=== PATIENT | female | born 1950 | race Caucasian/White ===

== ENCOUNTER → 2017-01-04 | Outpatient (CLI) | payer BC ==
--- NOTE | 2017-01-04 12:15 | MM ---
Reason for exam: screening (asymptomatic). Last mammogram was performed 1 year ago. History: Patient is postmenopausal and is nulliparous. Benign US biopsy breast VAD RT of the right breast, September 04, 2014. Taking estrogen for 5 years 7 months. Took progesterone for 4 months. Physical Findings: A clinical breast exam by your physician is recommended on an annual basis and results should be correlated with mammographic findings. MG Screening Mammo w CAD Bilateral CC and MLO view(s) were taken. Prior study comparison: January 01, 2016, bilateral MG 3d diag mammo w/cad WILLIE. September 04, 2014, right breast MG diagnostic mammo RT wo CAD. August 19, 2014, bilateral MG diagnostic mammo w CAD WILLIE. There are scattered fibroglandular densities. Previous mammotome biopsy in the right breast. There is chronic nodularity in the right breast. Asymmetric breast tissue in the left breast is stable. There is no discrete abnormality. ASSESSMENT: Benign, BI-RAD 2 RECOMMENDATION: Routine screening mammogram of both breasts in 1 year.
== END | disposition home or self-care (01) ==
LOC: RADMAMWWP 08:38
PROVIDERS: ATTEND Family Medicine
DX: Z12.31 Encounter for screening mammogram for malignant neoplasm of breast (principal)

== ENCOUNTER → 2018-02-28 | Outpatient (CLI) | payer MEDICARE ==
--- NOTE | 2018-02-28 17:50 | BD ---
EXAMINATION TYPE: MG DEXA axial skeleton. DATE OF EXAM: 02/28/2018 COMPARISON: 08/20/2002 CLINICAL HISTORY: Height: 64 IN Weight: 225 LBS FRAX RISK QUESTIONS: Alcohol (3 or more units per day): NO Family History (Parent hip fracture): NO Glucocorticoids (More than 3mos): NO (Ex: prednisone, prednisolone, methylprednisolone, dexamethasone, and hydrocortisone). History of Fracture in Adulthood: NO Secondary Osteoporosis: 1. Type 1 Diabetes: NO 2. Hyperthyroidism: NO 3. Menopause before 45: YES AGE 42 COMPLETE HYSTERECTOMY 4. Malnutrition: NO 5. Chronic liver disease: NO Rheumatoid Arthritis: NO Current Tobacco Use: NO RISK FACTORS HISTORY OF: Family History of Osteoporosis: YES MOTHER Active: YES Diet low in dairy products/other sources of calcium: YES Postmenopausal woman: AGE 42 Take estrogen and/or progesterone medications: YES PREMARIN CREAM FOR 10 YEARS How long: TOOK ESTROGEN FOR 5 YEARS MEDICATIONS: Additional Medications: VIT D, PREMARIN CREAM, HIGH BLOOD PRESSURE MED, HIGH CHOLESTEROL MEDS, EXAM MEASUREMENTS: Bone mineral densitometry was performed using the [employer] System. Bone mineral density as measured about the Lumbar spine is: ----- L1-L4(G/cm2): 1.161 T Score Values are as follows: ----- L2: -0.6 ----- L3: -1.0 ----- L4: 2.0 ----- L1-L4: -0.2 Bone mineral density has: Increased 5.4% since study of: 08/20/2002 Bone mineral density about the R hip (g/cm2): 0.870 Bone mineral density about the L hip (g/cm2): 0.815 T Score values are as follows: -----R Neck: -1.2 -----L Neck: -1.6 -----R Total: -0.6 -----L Total: -1.1 Bone mineral density has: Decreased -18.6% since study of: 08/20/2002 IMPRESSION: Normal (Values between +1 and -1 indicate normal bone mass). Consider repeating this study in 5 year s or sooner if there is some new clinical indication. NOTE: T-SCORE=SD OF THE YOUNG ADULT MEAN.
--- NOTE | 2018-03-01 14:25 | MM ---
Reason for exam: screening (asymptomatic). Last mammogram was performed 1 year and 2 months ago. History: Patient is postmenopausal and is nulliparous. Benign US biopsy breast VAD RT of the right breast, September 04, 2014. Taking estrogen for 5 years 7 months. Took progesterone for 4 months. Physical Findings: A clinical breast exam by your physician is recommended on an annual basis and results should be correlated with mammographic findings. MG 3D Screening Mammo W/Cad Bilateral CC and MLO view(s) were taken. Prior study comparison: January 04, 2017, bilateral MG screening mammo w CAD. January 01, 2016, bilateral MG 3d diag mammo w/cad WILLIE. The breast tissue is almost entirely fat. Previous mammotome biopsy in the right breast. No significant changes when compared with prior studies. ASSESSMENT: Benign, BI-RAD 2 RECOMMENDATION: Routine screening mammogram of both breasts in 1 year.
== END | disposition home or self-care (01) ==
LOC: RADMAMWWP 08:19
PROVIDERS: ATTEND Family Medicine
DX: Z12.31 Encounter for screening mammogram for malignant neoplasm of breast (principal); M85.80 Other specified disorders of bone density and structure, unspecified site
CPT/HCPCS: 77063; 77067; 77080

== ENCOUNTER → 2019-05-28 | Outpatient (CLI) | payer MEDICARE ==
--- NOTE | 2019-05-29 11:02 | MM ---
Reason for exam: screening (asymptomatic). Last mammogram was performed 1 year and 3 months ago. History: Patient is postmenopausal and is nulliparous. Benign US biopsy breast VAD RT of the right breast, September 04, 2014. Taking estrogen for 5 years 7 months. Took progesterone for 4 months. Physical Findings: A clinical breast exam by your physician is recommended on an annual basis and results should be correlated with mammographic findings. MG 3D Screening Mammo W/Cad Bilateral CC and MLO view(s) were taken. Prior study comparison: February 28, 2018, bilateral MG 3d screening mammo w/cad. January 04, 2017, bilateral MG screening mammo w CAD. There are scattered fibroglandular densities. Stable benign calcifications. There is no discrete abnormality. No significant changes when compared with prior studies. ASSESSMENT: Benign, BI-RAD 2 RECOMMENDATION: Routine screening mammogram of both breasts in 1 year.
== END | disposition home or self-care (01) ==
LOC: RADMAMWWP 09:12
PROVIDERS: ATTEND Family Medicine
DX: Z12.31 Encounter for screening mammogram for malignant neoplasm of breast (principal); E55.9 Vitamin D deficiency, unspecified
CPT/HCPCS: 77063; 77067

== ENCOUNTER → 2021-10-11 | Outpatient (CLI) | payer MEDICARE ==
--- NOTE | 2021-10-14 11:30 | MM ---
Reason for exam: screening (asymptomatic). Last mammogram was performed 2 years and 4 months ago. History: Patient is postmenopausal and is nulliparous. Benign US biopsy breast VAD RT of the right breast, September 04, 2014. Took hormonal contraceptives for 25 years. Taking estrogen for 5 years 7 months. Took progesterone for 4 months. Physical Findings: A clinical breast exam by your physician is recommended on an annual basis and results should be correlated with mammographic findings. MG 3D Screening Mammo W/Cad Bilateral CC and MLO view(s) were taken. Prior study comparison: May 28, 2019, bilateral MG 3d screening mammo w/cad. February 28, 2018, bilateral MG 3d screening mammo w/cad. There are scattered fibroglandular densities. Previous mammotome biopsy in the right breast. Focal asymmetry outer left CC view. No significant changes when compared with prior studies. ASSESSMENT: Benign, BI-RAD 2 RECOMMENDATION: Routine screening mammogram of both breasts in 1 year.
== END | disposition home or self-care (01) ==
LOC: RADMAMWWP 11:32
PROVIDERS: ATTEND Family Medicine
DX: Z12.31 Encounter for screening mammogram for malignant neoplasm of breast (principal); Z78.0 Asymptomatic menopausal state
CPT/HCPCS: 77063; 77067

== ENCOUNTER → 2022-04-28 | Outpatient (CLI) | payer MEDICARE ==
--- NOTE | 2022-04-29 10:58 | USB ---
Reason for Exam: Clinical finding. Patient History: Menarche at age 14. Patient has no children. Left ovary removed at age 42. Right ovary removed at age 42. Hysterectomy at age 42. Postmenopausal. Currently using Estrogen, for 5 years, 7 months. Progesterone for 4 months. Patient used Hormonal Contraceptives for 25 years. 09/04/2014, Benign Core Biopsy on the right side. Risk Values: Michelle 5 year model risk: 2.3%. NCI Lifetime model risk: 6.9%. Prior Study Comparison: 02/28/2018 Bilateral Screening Mammogram, [facility]. 05/28/2019 Bilateral Screening Mammogram, [facility]. 10/11/2021 Bilateral Screening Mammogram, [facility]. Findings: Finding 1: Mass. Laterality: Right. Size 29 x 16 x 27 mm. 10 O'clock Region: Axillary Tail. 20 cm cm from nipple. Shape: Oval. Targeted scanning of the patient's palpable site 10:00 zone B/C within the right breast. Additional scanning of the subareolar region and axilla. We note that patient had previous biopsy at the same site back in 2013. Correlating with the patient's 10/11/2021 mammogram, an oval fatty area appears to be gradually enlarging. At the palpable site, 10:00 position right breast, there is an oval, circumscribed echogenic mass measuring 2.9 x 2.7 x 1.6 cm. In 2013, this measured 2.5 x 1.8 x 1.1 cm. Overall Assessment: Probably benign, BI-RAD 3 Management: Diagnostic Mammogram of both breasts in 5 months. Surgical Consultation of the right breast. 1. Surgical consultation for further clinical assessment of the patient's 10:00 right breast palpable site. This was previously biopsied in 2013 revealing adipose tissue with fibrosis. This shows slight gradual enlargement from that time. If symptomatic, consider surgical excision. 2. Bilateral diagnostic mammograms in 5 months at the time of the patient's annual exam. Findings and impression were discussed with the patient. Electronically signed and approved by: Chantal Marquez M.D. Radiologist
== END | disposition home or self-care (01) ==
LOC: RADUSWWP 09:29
PROVIDERS: ATTEND Family Medicine
DX: R92.8 Other abnormal and inconclusive findings on diagnostic imaging of breast (principal); Z78.0 Asymptomatic menopausal state

== ENCOUNTER → 2022-06-03 | Outpatient (CLI) | payer MEDICARE ==
[2022-06-03 14:54] VITALS: BP 119/76; PULSE 51; RESP 17; TEMP 98.4
--- NOTE | 2022-06-03 15:16 | P.GSHP ---
History of Present Illness H&P Date: 06/03/22 Chief Complaint: mass right breast Kala is a 71 year old white female seen in consultation for Dr. Betancur regarding a mass in her right breast. She had a biopsy (core biopsy) of this area in 2013 and by report this was fatty tissue with fibrosis. She had a bilateral mammogram on 10-11-22 which was BIRAD 2. She had an ultrasound of the right breast on 04-28-22 which showed a 2.9 by 2.7 cm echogenic mass at the 10:00 position. The patient about two months ago started to feel some fullness at this site. It has not changed since she started to feel it. Is not painful. She has not had any trauma or infection in the breast. She does not complain of any skin changes or nipple discharge. She has not had other surgery in the breast other than the core biopsy of the lesion on the right side. 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 Social History: nicotine: Negative Alcohol: Occasional Drugs: Negative - Constitutional Constitutional: Denies chills, Denies fever - EENT Eyes: denies blurred vision, denies pain Ears: deny: decreased hearing, tinnitus Ears, nose, mouth and throat: Denies headache, Denies sore throat - Breasts Breasts: bilateral: as per HPI - Cardiovascular Cardiovascular: Reports as per HPI - Respiratory Respiratory: Denies cough, Denies 7 - Gastrointestinal Gastrointestinal: Denies abdominal pain, Denies diarrhea, Denies nausea, Denies vomiting - Genitourinary (Female) Genitourinary: Denies dysuria, Denies hematuria - Menstruation Menstruation: Reports post hysterectomy - Musculoskeletal Musculoskeletal: Denies myalgias - Integumentary Integumentary: Denies pruritus, Denies rash - Neurological Neurological: Denies numbness, Denies weakness - Psychiatric Psychiatric: Denies anxiety, Denies depression - Endocrine Endocrine: Denies fatigue, Denies weight change - Hematologic/Lymphatic Comment: baby aspirin - Allergic/Immunologic Allergic/Immunologic: Reports seasonal allergies Past Medical History Past Medical History: Hyperlipidemia, Hypertension, Osteoarthritis (OA), Skin Disorder Additional Past Medical History / Comment(s): thin skin to fingers and mult paper cuts, steroids w/in last 3 mos History of Any Multi-Drug Resistant Organisms: None Reported Past Surgical History: Hysterectomy, Orthopedic Surgery Additional Past Surgical History / Comment(s): LEFT KNEE AND LEFT SHOULDER SURGERY, LEFT FOOT FUSION 2016 Past Anesthesia/Blood Transfusion Reactions: No Reported Reaction Past Psychological History: Anxiety Smoking Status: Never smoker Past Alcohol Use History: Occasional Past Drug Use History: None Reported - Past Family History Mother Additional Family Medical History / Comment(s): Rheumatic fever, Rheumatic heart disease, heart valve replacement x2 Father Additional Family Medical History / Comment(s): dementia Medications and Allergies Home Medications Medication Instructions Recorded Confirmed Type Aspirin 81 mg PO DAILY 11/21/14 06/03/22 History Docusate Sodium [Dulcolax Stool 100 mg PO BID 11/21/14 06/03/22 History Softener] Naproxen Sodium [Aleve] 220 mg PO HS 11/21/14 06/03/22 History Simvastatin [Zocor] 40 mg PO HS 11/21/14 06/03/22 History Montelukast Sodium [Singulair] 10 mg PO DAILY 06/03/22 06/03/22 History Turmeric Root Extract [Turmeric] 500 mg PO DAILY 06/03/22 06/03/22 History Allergies Allergy/AdvReac Type Severity Reaction Status Date / Time niacin Allergy Severe FLUSHING Verified 06/03/22 14:47 prednisone Allergy racing Verified 06/03/22 14:47 heart rate,confusion,restlessness Surgical - Exam Vital Signs Temp Pulse Resp BP Pulse Ox 98.4 F 51 L 17 119/76 99 06/03/22 14:51 06/03/22 14:51 06/03/22 14:51 06/03/22 14:51 06/03/22 14:51 BMI: 38.1 - General no distress - Eyes normal ocular movement - ENT no hearing loss - Neck trachea midline - Respiratory normal respiratory effort - Cardiovascular Rhythm: regular Heart Sounds: normal: S1, S2 - Abdomen Abdomen: soft - Integumentary normal turgor - Neurologic no disoriented, no combative - Musculoskeletal normal gait - Psychiatric oriented to time, oriented to person, oriented to place, speech is normal, memory intact Breast examination: BRA: 44DDD inspection: Bilateral grade 3 ptosis Palpation: Right breast: Multi-positional exam fibrocystic changes, approximately 2.5 centimeter circumscribed nodule in the upper outer quadrant region the spine was seen on ultrasound Right axilla: No adenopathy of concern Left breast: Positional exam no dominant masses or nodules of concern Left axilla: No adenopathy of concern Results Mammogram and ultrasound reviewed Assessment and Plan Assessment: Impression: mass right breast; this has changed it has become palpable for the patient she cannot feel the one that was biopsied in 2013 and is tender to palpation abnormal right breast ultrasound Plan: Ultrasound-guided core biopsy to confirm that the area now palpable which has changed is still consistent with a lipomatous like lesion Probable resection in the operating room after confirmation that this is a lipoma Risks and benefits of procedure discussed with the patient and her friend. They understand and wish to proceed. CC: Dr. Betancur
== END ==
LOC: WWCWWP 13:53
PROVIDERS: ATTEND Surgery
DX: N63.12 Unspecified lump in the right breast, upper inner quadrant (principal); E78.5 Hyperlipidemia, unspecified; I10 Essential (primary) hypertension; M19.90 Unspecified osteoarthritis, unspecified site; F41.9 Anxiety disorder, unspecified; Z88.8 Allergy status to other drugs, medicaments and biological substances

== ENCOUNTER → 2022-06-15 | Day surgery (SDC) | payer MEDICARE ==
--- NOTE | 2022-06-21 11:46 | MM ---
Risk Values: Michelle 5 year model risk: 2.3%. NCI Lifetime model risk: 6.9%. Pathology Description: Location: 10 o'clock. Marker Left Behind. Needle Type: Mammotome Cores: 6 Gauge: 13 The procedure of ultrasound guided core biopsy was explained to the patient. Benefits, alternatives, and risks were discussed. An informed consent was then obtained. The patient was placed in supine positioning for imaging and for the procedure. The overlying skin was prepped and draped in usual sterile fashion. Lidocaine was used as anesthetic into the skin and subcutaneous tissue up to area of concern in the 10:00 peripheral right breast.. Under ultrasound guidance, a 13-gauge vacuum-assisted mammotome Elite biopsy gun was used to obtain 6 core samples. Following this, a Hydromark coil clip was left in lesion. The patient tolerated the procedure well without any immediate complication. The patient was kept in the radiology department for short stay after the procedure and then discharged home in stable condition. Postprocedure mammogram: Shows 2 clips located within the oval fat density lesion posterior upper outer quadrant. The patient was transferred to mammography for physician ordered post procedure mammogram for clip placement verification. Impression: Successful, uncomplicated ultrasound guided core biopsy of suspected posterior upper outer quadrant lipoma right breast which has been gradually enlarging. Full pathology results to follow. Pathology Results: Result: Benign, Fibroadenolipoma. RIGHT BREAST, TEN O'CLOCK, ULTRASOUND GUIDED NEEDLE CORE BIOPSY: Features consistent with fibrolipoma. Tissue Density: Right: There are scattered fibroglandular densities. Findings: The procedure of ultrasound guided core biopsy was explained to the patient. Benefits, alternatives, and risks were discussed. An informed consent was then obtained. The patient was placed in supine positioning for imaging and for the procedure. The overlying skin was prepped and draped in usual sterile fashion. Lidocaine was used as anesthetic into the skin and subcutaneous tissue up to area of concern in the 10:00 peripheral right breast.. Under ultrasound guidance, a 13-gauge vacuum-assisted mammotome Elite biopsy gun was used to obtain 6 core samples. Following this, a Hydromark coil clip was left in lesion. The patient tolerated the procedure well without any immediate complication. The patient was kept in the radiology department for short stay after the procedure and then discharged home in stable condition. Postprocedure mammogram: Shows 2 clips located within the oval fat density lesion posterior upper outer quadrant. The patient was transferred to mammography for physician ordered post procedure mammogram for clip placement verification. Impression: Successful, uncomplicated ultrasound guided core biopsy of suspected posterior upper outer quadrant lipoma right breast which has been gradually enlarging. Full pathology results to follow. Overall Assessment: Benign Assessment: MG diagnostic mammo RT wo CAD - Right: Benign, BI-RAD 2. Management: Screening Mammogram of both breasts in 3 months. Back on schedule. Electronically signed and approved by: Chantal Marquez M.D. Radiologist
== END ==
LOC: RADUSWWP 07:41
PROVIDERS: ATTEND Surgery
DX: R92.8 Other abnormal and inconclusive findings on diagnostic imaging of breast (principal); Z88.8 Allergy status to other drugs, medicaments and biological substances; Z79.82 Long term (current) use of aspirin; Z79.899 Other long term (current) drug therapy; Z79.1 Long term (current) use of non-steroidal anti-inflammatories (NSAID)
CPT/HCPCS: 88305; 77065; 19083; A4648

== ENCOUNTER → 2022-09-23 | Outpatient (CLI) | payer MEDICARE ==
[2022-09-23 15:11] LABS: African American GFR (CKD) 69.5 (60.0-200.0); Anion Gap 11.7 mmol/L (10.00-18.00); BUN/Creat Ratio 20.42 Ratio (12.00-20.00); Blood Urea Nitrogen 19.6 mg/dL (9.0-27.0); Calcium 9.4 mg/dL (8.7-10.3); Carbon Dioxide 25.9 mmol/L (20.0-27.5); Non-African American GFR(CKD) 59.9 (60.0-200.0); Potassium 4.4 mmol/L (3.5-5.5)
== END | disposition home or self-care (01) ==
LOC: LABWHC1 08:26
PROVIDERS: ATTEND Internal Medicine Interventional Cardiology
DX: I10 Essential (primary) hypertension (principal)
CPT/HCPCS: 36415; 80048; 83735

== ENCOUNTER → 2022-09-28 | Outpatient (CLI) | payer MEDICARE ==
--- NOTE | 2022-09-28 13:40 | MM ---
Reason for Exam: Follow-up at short interval from prior study. Last screening mammogram was performed 12 month(s) ago. Patient History: Menarche at age 14. Patient has no children. Left ovary removed at age 42. Right ovary removed at age 42. Hysterectomy at age 42. Postmenopausal. Currently using Estrogen, for 5 years, 7 months. Progesterone for 4 months. Patient used Hormonal Contraceptives for 25 years. 06/15/2022, Benign US biopsy breast VAD RT on the right side. 09/04/2014, Benign Core Biopsy on the right side. Risk Values: Michelle 5 year model risk: 2.9%. NCI Lifetime model risk: 8.3%. Tissue Density: There are scattered fibroglandular densities. Findings: Analyzed By CAD. Right breast biopsy clip located around a fat-containing lesion consistent with prior biopsy pathology. No suspicious masses calcifications or distortions within either breast. Overall Assessment: Benign, BI-RAD 2 Management: Screening Mammogram of both breasts in 1 year. A clinical breast exam by your physician is recommended on an annual basis and results should be correlated with mammographic findings. This exam should not preclude additional follow-up of suspicious palpable abnormalities. Results were given to the patient verbally at the time of exam. Electronically signed and approved by: Christiano Poe DO
== END | disposition home or self-care (01) ==
LOC: RADMAMWWP 12:55
PROVIDERS: ATTEND Family Medicine
DX: R92.8 Other abnormal and inconclusive findings on diagnostic imaging of breast (principal); Z78.0 Asymptomatic menopausal state; Z90.721 Acquired absence of ovaries, unilateral
CPT/HCPCS: 77066; G0279; 77062

== ENCOUNTER → 2022-10-13 | Outpatient (CLI) | payer MEDICARE ==
[2022-10-13 08:38] VITALS: BP 133/80; PULSE 71; RESP 17; TEMP 97.8
--- NOTE | 2022-10-13 09:34 | P.PN ---
Subjective Progress Note Date: 10/13/22 Principal diagnosis: Fibrolipoma right breast/fibrocystic breast changes Kala is a 72 year old white female seen in consultation for Dr. Betancur regarding a mass in her right breast. She had a core biopsy which was a fibrolipoma on 06-15-22. She had a biopsy (core biopsy) of this area in 2013 and by report this was fatty tissue with fibrosis. She had a bilateral mammogram on 10-11-21 which was BIRAD 2. She had an ultrasound of the right breast on 04-28-22 which showed a 2.9 by 2.7 cm echogenic mass at the 10:00 position. The patient about two months ago started to feel some fullness at this site. It had not changed since she started to feel it. Is was not painful. She had not had any trauma or infection in the breast. She did not complain of any skin changes or nipple discharge. She had not had other surgery in the breast other than the core biopsy of the lesion on the right side. She most recently had a bilateral mammogram on [id number] which was benign BIRADS 2. She is not complaining of any new lumps masses or nodules in either breast. The patient states that the area which was biopsied is still palpable but has not changed at all in size and it is not tender. 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 HTN Social History: nicotine: Negative Alcohol: Occasional Drugs: Negative - Constitutional Constitutional: Denies chills, Denies fever - EENT Eyes: denies blurred vision, denies pain Ears: deny: decreased hearing, tinnitus Ears, nose, mouth and throat: Denies headache, Denies sore throat - Breasts Breasts: bilateral: as per HPI - Cardiovascular Cardiovascular: Reports as per HPI - Respiratory Respiratory: Denies cough - Gastrointestinal Gastrointestinal: Denies abdominal pain, Denies diarrhea, Denies nausea, Denies vomiting - Genitourinary (Female) Genitourinary: Denies dysuria, Denies hematuria - Menstruation Menstruation: Reports post hysterectomy - Musculoskeletal Musculoskeletal: Denies myalgias - Integumentary Integumentary: Denies pruritus, Denies rash - Neurological Neurological: Denies numbness, Denies weakness - Psychiatric Psychiatric: Denies anxiety, Denies depression - Endocrine Endocrine: Denies fatigue, Denies weight change - Hematologic/Lymphatic Comment: baby aspirin - Allergic/Immunologic Allergic/Immunologic: Reports seasonal allergies Past Medical History Past Medical History: Hyperlipidemia, Hypertension, Osteoarthritis (OA), Skin Disorder Additional Past Medical History / Comment(s): thin skin to fingers and mult paper cuts, steroids w/in last 3 mos History of Any Multi-Drug Resistant Organisms: None Reported Past Surgical History: Hysterectomy, Orthopedic Surgery Additional Past Surgical History / Comment(s): LEFT KNEE AND LEFT SHOULDER BELTRAN RGERY, LEFT FOOT FUSION 2016 Past Anesthesia/Blood Transfusion Reactions: No Reported Reaction Past Psychological History: Anxiety Smoking Status: Never smoker Past Alcohol Use History: Occasional Past Drug Use History: None Reported - Past Family History Mother Additional Family Medical History / Comment(s): Rheumatic fever, Rheumatic heart disease, heart valve replacement x2 Father Additional Family Medical History / Comment(s): dementia Objective - Vital Signs Vital signs: Vital Signs Temp 97.8 F 10/13/22 08:36 Pulse 71 10/13/22 08:36 Resp 17 10/13/22 08:36 BP 133/80 10/13/22 08:36 Pulse Ox 96 10/13/22 08:36 FiO2 Intake & Output 10/12/22 10/13/22 10/13/22 18:59 06:59 18:59 Weight 101.605 kg - Constitutional General appearance: Present: cooperative - EENT Eyes: Present: EOMI ENT: Present: hearing grossly normal - Neck Neck: Present: normal ROM - Respiratory Respiratory: bilateral: CTA - Cardiovascular Rhythm: regular Heart sounds: normal: S1, S2 - Gastrointestinal General gastrointestinal: Present: soft - Integumentary Integumentary: Present: normal turgor - Musculoskeletal Musculoskeletal: Present: gait normal - Psychiatric Psychiatric: Present: A&O x's 3, appropriate affect, intact judgment & insight - Additional findings Additional findings: Breast Exam: BRA: 44DDD Inspection: Bilateral grade 2/3 ptosis Palpation: Right breast: Slightly larger than left breast, multiple positional exam approximately 2 to 21/2 cm nodularity which is consistent with biopsy specimen in the right breast in the lateral aspect at approximately the 10:30 position, this is tender to palpation Right axilla: No adenopathy of concern Left breast: Multiple positional exam fibrocystic changes no dominant masses or nodules of concern Left axilla: No adenopathy of concern Assessment and Plan Assessment: Impression: Tender mass right breast upper outer quadrant consistent with fibrolipoma symptomatic Plan: Resection of symptomatic fibrolipoma right breast, possible onco-plastic tissue transfer CC: Dr. Betancur
== END ==
LOC: WWCWWP 08:26
PROVIDERS: ATTEND Surgery
DX: R92.8 Other abnormal and inconclusive findings on diagnostic imaging of breast (principal); Z88.8 Allergy status to other drugs, medicaments and biological substances

== ENCOUNTER → 2022-11-25 | Outpatient (CLI) | payer MEDICARE ==
[2022-11-25 08:45] VITALS: BP 139/84; PULSE 60; RESP 16; TEMP 98.7
--- NOTE | 2022-11-25 09:06 | P.PN ---
Subjective Progress Note Date: 11/25/22 Principal diagnosis: fibrolipoma right breast Fibrolipoma right breast/fibrocystic breast changes Kala is a 72 year old white female seen in consultation for Dr. Betancur regarding a mass in her right breast. She had a core biopsy which was a fibrolipoma on 06-15-22. She had a biopsy (core biopsy) of this area in 2013 and by report this was fatty tissue with fibrosis. She had a bilateral mammogram on 10-11-21 which was BIRAD 2. She had an ultrasound of the right breast on 04-28-22 which showed a 2.9 by 2.7 cm echogenic mass at the 10:00 position. The patient about two months ago started to feel some fullness at this site. It had not changed since she started to feel it. Is was not painful. She had not had any trauma or infection in the breast. She did not complain of any skin changes or nipple discharge. She had not had other surgery in the breast other than the core biopsy of the lesion on the right side. She most recently had a bilateral mammogram on [id number] which was benign BIRADS 2. She is not complaining of any new lumps masses or nodules in either breast. The patient states that the area which was biopsied is still palpable. The area is tender to palpation. 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: sees a silo erector, for an extra occasional "wire" that fires HTN Social History: nicotine: Negative Alcohol: Occasional Drugs: Negative - Constitutional Constitutional: Denies chills, Denies fever - EENT Eyes: denies blurred vision, denies pain Ears: deny: decreased hearing, tinnitus Ears, nose, mouth and throat: Denies headache, Denies sore throat - Breasts Breasts: bilateral: as per HPI - Cardiovascular Cardiovascular: Reports as per HPI - Respiratory Respiratory: Denies cough - Gastrointestinal Gastrointestinal: Denies abdominal pain, Denies diarrhea, Denies nausea, Denies vomiting - Genitourinary (Female) Genitourinary: Denies dysuria, Denies hematuria - Menstruation Menstruation: Reports post hysterectomy - Musculoskeletal Musculoskeletal: Denies myalgias - Integumentary Integumentary: Denies pruritus, Denies rash - Neurological Neurological: Denies numbness, Denies weakness - Psychiatric Psychiatric: Denies anxiety, Denies depression - Endocrine Endocrine: Denies fatigue, Denies weight change - Hematologic/Lymphatic Comment: baby aspirin - Allergic/Immunologic Allergic/Immunologic: Reports seasonal allergies Past Medical History Past Medical History: Hyperlipidemia, Hypertension, Osteoarthritis (OA), Skin Disorder Additional Past Medical History / Comment(s): thin skin to fingers and mult paper cuts, steroids w/in last 3 mos History of Any Multi-Drug Resistant Organisms: None Reported Past Surgical History: Hysterectomy, Orthopedic Surgery Additional Past Surgical History / Comment(s): LEFT KNEE AND LEFT SHOULDER SURGERY, LEFT FOOT FUSION 2016 Past Anesthesia/Blood Transfusion Reactions: No Reported Reaction Past Psychological History: Anxiety Smoking Status: Never smoker Past Alcohol Use History: Occasional Past Drug Use History: None Reported - Past Family History Mother Additional Family Medical History / Comment(s): Rheumatic fever, Rheumatic heart disease, heart valve replacement x2 Father Additional Family Medical History / Comment(s): dementia Objective - Vital Signs Vital signs: Vital Signs Temp 98.7 F 11/25/22 08:43 Pulse 60 11/25/22 08:43 Resp 16 11/25/22 08:43 BP 139/84 11/25/22 08:43 Pulse Ox 99 11/25/22 08:43 FiO2 Intake & Output 11/24/22 11/25/22 11/25/22 18:59 06:59 18:59 Weight 101.605 kg - Constitutional General appearance: Present: cooperative - EENT Eyes: Present: EOMI ENT: Present: hearing grossly normal - Neck Neck: Present: normal ROM - Respiratory Respiratory: bilateral: CTA - Cardiovascular Rhythm: regular Heart sounds: normal: S1, S2 - Gastrointestinal General gastrointestinal: Present: soft - Integumentary Integumentary: Present: normal turgor - Musculoskeletal Musculoskeletal: Present: gait normal - Psychiatric Psychiatric: Present: A&O x's 3, appropriate affect, intact judgment & insight - Additional findings Additional findings: Breast Exam: BRA: 44DDD Inspection: Bilateral grade 2/3 ptosis Palpation: Right breast: Slightly larger than left breast, multiple positional exam approximately 2 to 21/2 cm nodularity which is consistent with biopsy specimen in the right breast in the lateral aspect at approximately the 10:30 position, this is tender to palpation Right axilla: No adenopathy of concern Left breast: Multiple positional exam fibrocystic changes no dominant masses or nodules of concern Left axilla: No adenopathy of concern Assessment and Plan Assessment: Assessment and Plan Assessment: Impression: Tender mass right breast upper outer quadrant consistent with fibrolipoma symptomatic Plan: Resection of symptomatic fibrolipoma right breast, possible onco-plastic tissue transfer CC: Dr. Betancur
== END ==
LOC: WWCWWP 08:25
PROVIDERS: ATTEND Surgery
DX: N63.11 Unspecified lump in the right breast, upper outer quadrant (principal); M19.90 Unspecified osteoarthritis, unspecified site; E78.5 Hyperlipidemia, unspecified; I10 Essential (primary) hypertension; Z88.8 Allergy status to other drugs, medicaments and biological substances; Z88.3 Allergy status to other anti-infective agents

== ENCOUNTER → 2023-06-15 | Outpatient (CLI) | payer MEDICARE ==
[2023-06-15 13:17] VITALS: BP 112/73; PULSE 54; RESP 18; TEMP 97.6
== END ==
LOC: WWCWWP 10:51
PROVIDERS: ATTEND Surgery
DX: Z53.9 Procedure and treatment not carried out, unspecified reason (principal)

== ENCOUNTER → 2023-06-15 | Outpatient (CLI) | payer MEDICARE ==
--- NOTE | 2023-06-15 11:29 | MM ---
Reason for Exam: Follow-up at short interval from prior study. Last screening mammogram was performed 9 month(s) ago. Patient History: Menarche at age 14. Patient has no children. Left ovary removed at age 42. Right ovary removed at age 42. Hysterectomy at age 42. Postmenopausal. Currently using Estrogen, for 5 years, 7 months. Progesterone for 4 months. Patient used Hormonal Contraceptives for 25 years. 12/13/2022, Lumpectomy on the Right side. 12/13/2022, Benign MG pre op needle loc RT on the right side. 06/15/2022, Benign US biopsy breast VAD RT on the right side. 09/04/2014, Benign Core Biopsy on the right side. Risk Values: Michelle 5 year model risk: 2.9%. NCI Lifetime model risk: 8.3%. Prior Study Comparison: 10/11/2021 Bilateral Screening Mammogram, [facility]. 06/15/2022 Right MG diagnostic mammo RT wo CAD, [facility]. 09/28/2022 Bilateral MG 3D diag mammo w/cad WILLIE, [facility]. Tissue Density: Right: There are scattered fibroglandular densities. Findings: Analyzed By CAD. Postexcisional change posterior upper outer quadrant of the right breast. Otherwise, no significant change from prior exam. Overall Assessment: Benign, BI-RAD 2 Management: Screening Mammogram of both breasts in 3 months. In time for the patient's annual exam. Results were given to the patient verbally at the time of exam. Patient should continue monthly self-breast exams. A clinical breast exam by your physician is recommended on an annual basis. This exam should not preclude additional follow-up of suspicious palpable abnormalities. Note on Michelle scores and lifetime risk: 1. A Michelle score greater than 3% is considered moderate risk. If this is the case, consider specialist referral to assess eligibility for a risk reducing agent. 2. If overall lifetime risk for the development of breast cancer is 20% or higher, the patient may qualify for future screening with alternating mammogram and breast MRI. Electronically signed and approved by: Chantal Marquez M.D. Radiologist
--- NOTE | 2023-06-15 12:00 | P.PN ---
Subjective Progress Note Date: 06/15/23 Principal diagnosis: resection fibro lipoma right breast Fibrolipoma right breast/fibrocystic breast changes Kala is status post resection of a fibrolipoma of the right breast on 12-13-22. Post procedure she has done well. A repeat mammogram on the right breast was done on 06-15-23 which was BIRAD 2. Her last bilateral mammogram was on 09-18-22. She is not complaining of any new lumps masses or nodules of concern in either breast. 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 dialysis nurse, for an extra occasional "wire" that fires HTN Social History: nicotine: Negative Alcohol: Occasional Drugs: Negative - Constitutional Constitutional: Denies chills, Denies fever - EENT Eyes: denies blurred vision, denies pain Ears: deny: decreased hearing, tinnitus Ears, nose, mouth and throat: Denies headache, Denies sore throat - Breasts Breasts: bilateral: as per HPI - Cardiovascular Cardiovascular: Reports as per HPI - Respiratory Respiratory: Denies cough - Gastrointestinal Gastrointestinal: Denies abdominal pain, Denies diarrhea, Denies nausea, Denies vomiting - Genitourinary (Female) Genitourinary: Denies dysuria, Denies hematuria - Menstruation Menstruation: Reports post hysterectomy - Musculoskeletal Musculoskeletal: Denies myalgias - Integumentary Integumentary: Denies pruritus, Denies rash - Neurological Neurological: Denies numbness, Denies weakness - Psychiatric Psychiatric: Denies anxiety, Denies depression - Endocrine Endocrine: Denies fatigue, Denies weight change - Hematologic/Lymphatic Comment: baby aspirin - Allergic/Immunologic Allergic/Immunologic: Reports seasonal allergies Past Medical History Past Medical History: Hyperlipidemia, Hypertension, Osteoarthritis (OA), Skin Disorder Additional Past Medical History / Comment(s): thin skin to fingers and mult paper cuts, steroids w/in last 3 mos History of Any Multi-Drug Resistant Organisms: None Reported Past Surgical History: Hysterectomy, Orthopedic Surgery Additional Past Surgical History / Comment(s): LEFT KNEE AND LEFT SHOULDER SURGERY, LEFT FOOT FUSION 2016 Past Anesthesia/Blood Transfusion Reactions: No Reported Reaction Past Psychological History: Anxiety Smoking Status: Never smoker Past Alcohol Use History: Occasional Past Drug Use History: None Reported - Past Family History Mother Additional Family Medical History / Comment(s): Rheumatic fever, Rheumatic heart disease, heart valve replacement x2 Father Additional Family Medical History / Comment(s): dementia Objective - Constitutional General appearance: Present: cooperative - EENT Eyes: Present: EOMI ENT: Present: hearing grossly normal - Neck Neck: Present: normal ROM - Respiratory Respiratory: bilateral: CTA - Cardiovascular Rhythm: regular Heart sounds: normal: S1, S2 - Gastrointestinal General gastrointestinal: Present: soft - Integumentary Integumentary: Present: normal turgor - Musculoskeletal Musculoskeletal: Present: gait normal - Psychiatric Psychiatric: Present: A&O x's 3, appropriate affect, intact judgment & insight - Additional findings Additional findings: Breast Exam: BRA: 44DDD Inspection: Bilateral grade 2/3 ptosis Palpation: Right breast: Slightly larger than left breast, multiple positional exam post op changes no lesions of concern Right axilla: No adenopathy of concern Left breast: Multiple positional exam fibrocystic changes no dominant masses or nodules of concern Left axilla: No adenopathy of concern Assessment and Plan Assessment: Impression: Patient status post resection fibrolipoma right breast Fibrocystic breast changes Right breast mammogram [id number] x 2 Plan: Bilateral mammogram in September 2023 with examination at that time Patient to follow up sooner any questions or concerns CC: Dr. Betancur
== END | disposition home or self-care (01) ==
LOC: RADMAMWWP 10:52
PROVIDERS: ATTEND Surgery
DX: N60.11 Diffuse cystic mastopathy of right breast (principal); E78.5 Hyperlipidemia, unspecified; I10 Essential (primary) hypertension; M19.90 Unspecified osteoarthritis, unspecified site; Z78.0 Asymptomatic menopausal state; Z90.710 Acquired absence of both cervix and uterus; Z90.721 Acquired absence of ovaries, unilateral; R92.8 Other abnormal and inconclusive findings on diagnostic imaging of breast
CPT/HCPCS: 77065; G0279; 77061

== ENCOUNTER → 2023-09-19 | Outpatient (CLI) | payer MEDICARE ==
--- NOTE | 2023-09-19 11:13 | MM ---
Reason for Exam: Screening (asymptomatic). Last screening mammogram was performed 12 month(s) ago. Patient History: Menarche at age 14. Patient has no children. Left ovary removed at age 42. Right ovary removed at age 42. Hysterectomy at age 42. Postmenopausal. Currently using Estrogen, for 5 years, 7 months. Progesterone for 4 months. Patient used Hormonal Contraceptives for 25 years. 12/13/2022, Lumpectomy on the Right side. 12/13/2022, Benign MG pre op needle loc RT on the right side. 06/15/2022, Benign US biopsy breast VAD RT on the right side. 09/04/2014, Benign Core Biopsy on the right side. Risk Values: Michelle 5 year model risk: 2.9%. NCI Lifetime model risk: 7.9%. Prior Study Comparison: 06/15/2022 Right MG diagnostic mammo RT wo CAD, [facility]. 09/28/2022 Bilateral MG 3D diag mammo w/cad [facility], [facility]. 06/15/2023 Right MG 3D diag mammo w/cad RT, [facility]. Tissue Density: There are scattered fibroglandular densities. Findings: Analyzed By CAD. There is no suspicious group of microcalcifications or new suspicious mass in either breast. Postexcisional changes to the posterior upper outer quadrant of the right breast. Stable chronic nodularity within the left breast. Overall Assessment: Benign, BI-RAD 2 Management: Screening Mammogram of both breasts in 1 year. A clinical breast exam by your physician is recommended on an annual basis and results should be correlated with mammographic findings. Note on Michelle scores and lifetime risk: 1. A Michelle score greater than 3% is considered moderate risk. If this is the case, consider specialist referral to assess eligibility for a risk reducing agent. If overall lifetime risk for the development of breast cancer is 20% or higher, the patient may qualify for future screening with alternating mammogram and breast MRI. Electronically signed and approved by: Boubacar Darnell D.O.
== END | disposition home or self-care (01) ==
LOC: RADMAMWWP 10:47
PROVIDERS: ATTEND Surgery
DX: Z12.31 Encounter for screening mammogram for malignant neoplasm of breast (principal); Z78.0 Asymptomatic menopausal state
CPT/HCPCS: 77063; 77067

== ENCOUNTER → 2023-09-22 | Outpatient (CLI) | payer MEDICARE ==
--- NOTE | 2023-09-22 08:48 | P.PN ---
Subjective Progress Note Date: 09/22/23 Principal diagnosis: fibrolipoma right breast resection fibro lipoma right breast Kala is status post resection of a fibrolipoma of the right breast on 12-13-22. Post procedure she has done well. A repeat mammogram on the right breast was done on 06-15-23 which was BIRAD 2. Her last bilateral mammogram was on BIRAD 2. She is not complaining of any new lumps masses or nodules of concern in either breast. Mammogram personally reviewed. 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: sees a dairy inspector, for an extra occasional "wire" that fires HTN Social History: nicotine: Negative Alcohol: Occasional Drugs: Negative - Constitutional Constitutional: Denies chills, Denies fever - EENT Eyes: denies blurred vision, denies pain Ears: deny: decreased hearing, tinnitus Ears, nose, mouth and throat: Denies headache, Denies sore throat - Breasts Breasts: bilateral: as per HPI - Cardiovascular Cardiovascular: Reports as per HPI - Respiratory Respiratory: Denies cough - Gastrointestinal Gastrointestinal: Denies abdominal pain, Denies diarrhea, Denies nausea, Denies vomiting - Genitourinary (Female) Genitourinary: Denies dysuria, Denies hematuria - Menstruation Menstruation: Reports post hysterectomy - Musculoskeletal Musculoskeletal: Denies myalgias - Integumentary Integumentary: Denies pruritus, Denies rash - Neurological Neurological: Denies numbness, Denies weakness - Psychiatric Psychiatric: Denies anxiety, Denies depression - Endocrine Endocrine: Denies fatigue, Denies weight change - Hematologic/Lymphatic Comment: baby aspirin - Allergic/Immunologic Allergic/Immunologic: Reports seasonal allergies Past Medical History Past Medical History: Hyperlipidemia, Hypertension, Osteoarthritis (OA), Skin Disorder Additional Past Medical History / Comment(s): thin skin to fingers and mult paper cuts, steroids w/in last 3 mos History of Any Multi-Drug Resistant Organisms: None Reported Past Surgical History: Hysterectomy, Orthopedic Surgery Additional Past Surgical History / Comment(s): LEFT KNEE AND LEFT SHOULDER SURGERY, LEFT FOOT FUSION 2016 Past Anesthesia/Blood Transfusion Reactions: No Reported Reaction Past Psychological History: Anxiety Smoking Status: Never smoker Past Alcohol Use History: Occasional Past Drug Use History: None Reported - Past Family History Mother Additional Family Medical History / Comment(s): Rheumatic fever, Rheumatic heart disease, heart valve replacement x2 Father Additional Family Medical History / Comment(s): dementia Objective - Constitutional General appearance: Present: cooperative - EENT Eyes: Present: EOMI ENT: Present: hearing grossly normal - Neck Neck: Present: normal ROM - Respiratory Respiratory: bilateral: CTA - Cardiovascular Rhythm: regular Heart sounds: normal: S1, S2 - Integumentary Integumentary: Present: normal turgor - Musculoskeletal Musculoskeletal: Present: gait normal - Psychiatric Psychiatric: Present: A&O x's 3, appropriate affect, intact judgment & insight - Additional findings Additional findings: Breast Exam: BRA: 44DDD Inspection: Bilateral grade 2/3 ptosis Palpation: Right breast: Slightly larger than left breast, multi positional exam post op changes no lesions of concern Right axilla: No adenopathy of concern Left breast: Multi positional exam fibrocystic changes no dominant masses or nodules of concern Left axilla: No adenopathy of concern Assessment and Plan Assessment: Impression: Patient status post resection fibrolipoma right breast Fibrocystic breast changes bilateral mammogram 09-19-23 BIRAD 2 Plan: Bilateral mammogram in September 2024 with exam at that time Patient to follow up sooner any questions or concerns CC: Dr. Betancur
[2023-09-22 08:49] VITALS: BP 113/74; PULSE 63; RESP 18; TEMP 97.7
== END ==
LOC: WWCWWP 08:33
PROVIDERS: ATTEND Surgery
DX: Z12.31 Encounter for screening mammogram for malignant neoplasm of breast (principal); N60.11 Diffuse cystic mastopathy of right breast; E78.5 Hyperlipidemia, unspecified; I10 Essential (primary) hypertension; M19.90 Unspecified osteoarthritis, unspecified site; F41.9 Anxiety disorder, unspecified; Z90.11 Acquired absence of right breast and nipple; Z87.2 Personal history of diseases of the skin and subcutaneous tissue; Z88.1 Allergy status to other antibiotic agents; Z88.8 Allergy status to other drugs, medicaments and biological substances; Z79.82 Long term (current) use of aspirin; Z79.899 Other long term (current) drug therapy

== ENCOUNTER → 2024-09-30 | Outpatient (CLI) | payer MEDICARE ==
--- NOTE | 2024-10-01 10:16 | MM ---
Reason for Exam: Screening (asymptomatic). Last screening mammogram was performed 12 month(s) ago. Patient History: Menarche at age 14. Patient has no children. Left ovary removed at age 42. Right ovary removed at age 42. Hysterectomy at age 42. Postmenopausal. Currently using Estrogen, for 5 years, 7 months. Progesterone for 4 months. Patient used Hormonal Contraceptives for 25 years. 12/13/2022, Lumpectomy on the Right side. 12/13/2022, Benign MG pre op needle loc RT on the right side. 06/15/2022, Benign US biopsy breast VAD RT on the right side. 09/04/2014, Benign Core Biopsy on the right side. Risk Values: Michelle 5 year model risk: 2.9%. NCI Lifetime model risk: 7.5%. Prior Study Comparison: 09/28/2022 Bilateral MG 3D diag mammo w/cad WILLIE, [facility]. 06/15/2023 Right MG 3D diag mammo w/cad RT, [facility]. 09/19/2023 Bilateral MG 3D screening mammo w/cad, [facility]. Tissue Density: There are scattered areas of fibroglandular density. Findings: Analyzed By CAD. There is no suspicious group of microcalcifications or new suspicious mass in either breast. Overall Assessment: Negative, BI-RAD 1 Management: Screening Mammogram of both breasts in 1 year. . Patient should continue monthly self-breast exams. A clinical breast exam by your physician is recommended on an annual basis. This exam should not preclude additional follow-up of suspicious palpable abnormalities. Note on Michelle scores and lifetime risk: 1. A Michelle score greater than 3% is considered moderate risk. If this is the case, consider specialist referral to assess eligibility for a risk reducing agent. 2. If overall lifetime risk for the development of breast cancer is 20% or higher, the patient may qualify for future screening with alternating mammogram and breast MRI. [facility], , 10/01/2024 10:13 AM. Electronically signed and approved by: Charles Calderon M.D. Radiologis
== END | disposition home or self-care (01) ==
LOC: RADMAMWWP 13:44
PROVIDERS: ATTEND Surgery
DX: Z12.31 Encounter for screening mammogram for malignant neoplasm of breast (principal); Z78.0 Asymptomatic menopausal state; R92.323 Mammographic fibroglandular density, bilateral breasts
CPT/HCPCS: 77063; 77067

== ENCOUNTER 2024-11-07 09:56 | Emergency (ER) | payer MEDICARE ==
--- NOTE | 2024-11-07 10:38 | ED ---
Female Urogenital HPI - General Chief complaint: Urogenital Stated complaint: lower pelvic pain Time Seen by Provider: 11/07/24 10:36 Source: patient, RN notes reviewed Mode of arrival: ambulatory Limitations: no limitations - History of Present Illness Initial comments: 74-year-old female presenting to the ER with chief complaint of pelvic pain x 2 weeks. Describes a burning sensation in her suprapubic region that is worse with laying/sitting and better with ambulating. Denies urinary symptoms, vaginal discharge or bleeding. States she has a history of "inflammation of the pelvic bone" which was treated by her PCP with steroids and anti-inflammatories. Denies trauma or injury. History of a total hysterectomy in 2007. She was seen at urgent care for this for the gave anti-inflammatories and muscle relaxers which provided relief until yesterday. - Related Data Home Medications Medication Instructions Recorded Confirmed Aspirin 81 mg PO DAILY 11/21/14 09/22/23 Docusate Sodium [Dulcolax Stool 100 mg PO BID 11/21/14 09/22/23 Softener] Simvastatin [Zocor] 40 mg PO HS 11/21/14 09/22/23 Montelukast Sodium [Singulair] 10 mg PO HS 06/03/22 09/22/23 Turmeric Root Extract [Turmeric] 500 mg PO DAILY 06/03/22 09/22/23 Azelastine/Fluticasone 1 spray EA NOSTRIL DAILY 06/06/22 09/22/23 [Azelastin-Flutic 137-50Mcg Spr] Estrogens, Conjugated Cream 1 applicator VAGINAL TUSA 06/06/22 09/22/23 [Premarin Vaginal Cream] Valsartan 160 mg PO HS 10/13/22 09/22/23 hydroCHLOROthiazide 25 mg PO DIRECTED 10/13/22 09/22/23 Fluticasone/Umeclidin/Vilanter 1 puff INHALATION DAILY 11/25/22 09/22/23 [Trelegy Ellipta 100-62.5-25] Loratadine-Pseudoeph 10-240 mg 1 tab PO DAILY PRN 11/25/22 09/22/23 [Claritin-D 24 Hour] HYDROcodone/APAP 5-325MG [Isabella 5] 1 - 2 each PO Q4H PRN 12/09/22 09/22/23 Allergies Allergy/AdvReac Type Severity Reaction Status Date / Time niacin Allergy Severe FLUSHING Verified 11/07/24 09:59 prednisone Allergy racing Verified 09/22/23 08:44 heart rate,confusion,restlessness Review of Systems ROS Statement: Those systems with pertinent positive or pertinent negative responses have been documented in the HPI. ROS Other: All systems not noted in ROS Statement are negative. Past Medical History Past Medical History: Hyperlipidemia, Hypertension, Osteoarthritis (OA) Additional Past Medical History / Comment(s): thin skin to fingers and mult paper cuts History of Any Multi-Drug Resistant Organisms: None Reported Past Surgical History: Hysterectomy, Orthopedic Surgery Additional Past Surgical History / Comment(s): LEFT KNEE AND LEFT SHOULDER SURGERY, LEFT FOOT FUSION 2016 Past Anesthesia/Blood Transfusion Reactions: Previous Problems w/ Anesthesia, Postoperative Nausea & Vomiting (PONV) Past Psychological History: No Psychological Hx Reported Smoking Status: Never smoker Past Alcohol Use History: Rare Past Drug Use History: None Reported - Past Family History Mother Additional Family Medical History / Comment(s): Rheumatic fever, Rheumatic heart disease, heart valve replacement x2 Father Additional Family Medical History / Comment(s): dementia General Exam Limitations: no limitations General appearance: alert, in no apparent distress Head exam: Present: atraumatic, normocephalic, normal inspection GI/Abdominal exam: Present: soft, normal bowel sounds, other (No suprapubic tenderness). Absent: distended, tenderness, guarding, rebound, rigid Neurological exam: Present: alert, oriented X3 Psychiatric exam: Present: normal affect, normal mood Skin exam: Present: warm, dry, intact, normal color. Absent: rash Course Vital Signs 11/07/24 09:57 Temperature 97.4 F L Pulse Rate 60 Respiratory 18 Rate Blood Pressure 148/72 O2 Sat by Pulse 99 Oximetry Medical Decision Making - Medical Decision Making Was pt. sent in by a medical professional or institution (, PA, BRAND REPRESENTATIVE, urgent care, hospital, or assisted...) When possible be specific @ -No Did you speak to anyone other than the patient for history (EMS, parent, family, police, friend...)? What history was obtained from this source @ -No Did you review nursing and triage notes (agree or disagree)? Why? @ -I reviewed and agree with nursing and triage notes Were old charts reviewed (outside hosp., previous admission, EMS record, old EKG, old radiological studies, urgent care reports/EKG's, assisted records)? Report findings @ -No old charts were reviewed Differential Diagnosis (chest pain, altered mental status, abdominal pain women, abdominal pain men, vaginal bleeding, weakness, fever, dyspnea, syncope, headache, dizziness, GI bleed, back pain, seizure, CVA, palpatations, mental health, musculoskeletal)? @ -Differential Musculoskeletal UTI, muscular strain, contusion, ligament sprain, fracture, arthritis, septic arthritis, bursitis, cellulitis, muscle spasm, nerve compression, DVT, arterial occlusion, herpes zoster, electrolyte abnormality, tumor.... This is not meant to be in all inclusive list EKG interpreted by me (3pts min.). @ -None X-rays interpreted by me (1pt min.). @ -X-ray revealed marked sclerosis of pubic symphysis possibly osteitis CT interpreted by me (1pt min.). @ -None done U/S interpreted by me (1pt. min.). @ -None done What testing was considered but not performed or refused? (CT, X-rays, U/S, labs)? Why? @ -None What meds were considered but not given or refused? Why? @ -None Did you discuss the management of the patient with other professionals (professionals i.e. , PA, BRAND REPRESENTATIVE, lab, RT, psych nurse, social media director, behavioral health care manager, teacher, public relations officer, caseworker intake)? Give summary @ -No Was smoking cessation discussed for >3mins.? @ -No Was critical care preformed (if so, how long)? @ -No Were there social determinants of health that impacted care today? How? (Homelessness, low income, unemployed, alcoholism, drug addiction, transportation, low edu. Level, literacy, decrease access to med. care, prison, rehab)? @ -No Was there de-escalation of care discussed even if they declined (Discuss DNR or withdrawal of care, Hospice)? DNR status @ -No What co-morbidities impacted this encounter? (DM, HTN, Smoking, COPD, CAD, Cancer, CVA, ARF, Chemo, Hep., AIDS, mental health diagnosis, sleep apnea, morbid obesity)? @ -None Was patient admitted / discharged? Hospital course, mention meds given and route, prescriptions, significant lab abnormalities, going to OR and other pertinent info. @ -Discharge. This is a 74-year-old female presenting with pelvic pain x 2 weeks. No urinary symptoms. Abdomen is soft nontender, no reproducible tende rness. X-ray revealed marked sclerosis of the pubic symphysis possibly osteitis. Urinalysis not indicative of UTI however culture sent. Results discussed with patient. Patient was provided with IM dose of Decadron as patient states this has relieved pain in the past. Advised to follow-up with PCP for MRI of the pelvis. Appropriate return precautions and follow-up care discussed. Case was discussed with my ED attending Dr. Morales. Undiagnosed new problem with uncertain prognosis? @ -No Drug Therapy requiring intensive monitoring for toxicity (Heparin, Nitro, Insulin, Cardizem)? @ -No Were any procedures done? @ -No Diagnosis/symptom? @ -Osteitis of pubic symphysis Acute, or Chronic, or Acute on Chronic? @ -Acute Uncomplicated (without systemic symptoms) or Complicated (systemic symptoms)? @ -Uncomplicated Side effects of treatment? @ -No Exacerbation, Progression, or Severe Exacerbation? @ -No Poses a threat to life or bodily function? How? (Chest pain, USA, MD, pneumonia, PE, COPD, DKA, ARF, appy, cholecystitis, CVA, Diverticulitis, Homicidal, Suicidal, threat to staff... and all critical care pts) @ -Not at this time - Lab Data Lab Results 11/07/24 Range/Units 10:55 Urine Color Colorless Urine Appearance Cloudy H (Clear) Urine pH 7.5 (5.0-8.0) Ur Specific Bruner 1.005 (1.001-1.035) Urine Protein Negative (Negative) Urine Glucose (UA) Negative (Negative) Urine Ketones Negative (Negative) Urine Blood Negative (Negative) Urine Nitrite Negative (Negative) Urine Bilirubin Negative (Negative) Urine Urobilinogen <2.0 (<2.0) mg/dL Ur Leukocyte Esterase Negative (Negative) Urine RBC <1 (0-5) /hpf Urine WBC 1 (0-5) /hpf Urine Bacteria Moderate H (None) /hpf Hyaline Casts 1 (0-2) /lpf Disposition Clinical Impression: Osteitis of symphysis pubis Disposition: HOME SELF-CARE Condition: Stable Additional Instructions: Continue anti-inflammatories and muscle relaxers as prescribed. Follow-up with PCP for MRI of the pelvis. Please return to the Emergency Department if symptoms worsen or any other concerns. Is patient prescribed a controlled substance at d/c from ED?: No Referrals: Darby Betancur MD [Primary Care Provider] - 1-2 days Time of Disposition: 12:07
[2024-11-07] MEDS: KETOROLAC 15 MG/ML 1 ML VIAL IM STA (10:49)
[2024-11-07 11:13] LABS: Appearance,Urine Cloudy (Clear); Bacteria,Urine Moderate /hpf; Bilirubin,Urine Negative (Negative); Blood,Urine Negative (Negative); Color,Urine Colorless; Glucose,Urine (UA) Negative (Negative); Hyaline Casts,Urine 1 /lpf (0-2); Ketones,Urine Negative (Negative); Leukocyte Esterase,Urine Negative (Negative); Nitrite,Urine Negative (Negative); PH, Urine 7.5 (5.0-8.0); Protein,Urine Negative (Negative); RBC,Urine <1 /hpf (0-5); Specific Gravity,Urine 1.005 (1.001-1.035); Urobilinogen,Urine <2.0 mg/dL (<2.0); WBC,Urine 1 /hpf (0-5)
--- NOTE | 2024-11-07 11:43 | XR ---
EXAMINATION TYPE: XR pelvis AP view DATE OF EXAM: 11/07/2024 11:26 AM COMPARISON: None. CLINICAL INDICATION: Female, 74 years old with history of pelvic pain, TECHNIQUE: A single AP view of the pelvis is obtained. FINDINGS: There is no acute fracture/dislocation evident in the pelvis. The hip and sacroiliac join ts appear symmetric and unremarkable. Marked sclerosis of the pubic symphysis. Generalized osteopenia . Degenerative change lower lumbar spine. Tiny enthesophytes involving the iliac crests. Mild bilater al hypertrophic hip arthropathy. IMPRESSION: 1. Marked sclerosis of the pubic symphysis possibly related to osteitis. Cannot exclude underlying ne oplastic process. Recommend MRI. [facility], , 11/07/2024 11:41 AM
[2024-11-07] MEDS: DEXAMETHASONE SOD PHOSPHATE 10 MG/ML 1 ML VIAL IM STA (12:38)
[2024-11-07 12:42] VITALS: BP 139/75; PULSE 62; RESP 16; TEMP 97.2
== END 2024-11-07 12:42 | disposition home or self-care (01) ==
LOC: EC 09:56
DX: M88.8 Osteitis deformans of other bones (principal); Z88.8 Allergy status to other drugs, medicaments and biological substances
CPT/HCPCS: 81001; 72170; 99284; 96372; J1100; J1885

== ENCOUNTER → 2024-11-26 | Outpatient (CLI) | payer MEDICARE ==
--- NOTE | 2024-11-26 20:46 | MR ---
EXAMINATION TYPE: MR pelvis wo/w con DATE OF EXAM: 11/26/2024 COMPARISON: Pelvic radiograph 11/07/2024, CT abdomen and pelvis 12/08/2010 CLINICAL INDICATION:Female, 74 years old with history of R10.2 PELVIC AND PERINEAL PAIN;M85.30 R93.49 ; [facility], TECHNIQUE: Triplane multisequence imaging was performed of the pelvis. Then the patient was given c ontrast/gadolinium, 10 cc of Gadobutrol and multiple post contrast sequences where obtained in two pl anes. FINDINGS: Reproductive: Postsurgical changes from hysterectomy with bilateral salpingo-oophorectomy. Unremarkable vaginal cuf f with no abnormal contrast enhancement. Bladder: Unremarkable. Bowel: No MR evidence for bowel obstruction. No focal bowel wall thickening or surrounding inflammato ry changes identified. The appendix appears within normal limits. A few scattered sigmoid diverticula . Peritoneum: No free fluid in the pelvis. No evidence of adenopathy. Vasculature: Unremarkable. Abdominal wall/soft tissues: Unremarkable. Musculoskeletal: Grade 1 anterolisthesis of L4 on L5. Multilevel degenerative disc disease of the vis ualized lower lumbar spine. Mild bilateral greater trochanteric bursitis. Other: Right renal 4.5 cm nonenhancing thin-walled T2 hyperintense benign cyst. IMPRESSION: 1. No evidence of suspicious pelvic mass. 2. Mild bilateral greater trochanteric bursitis. 3. Grade 1 anterolisthesis of L4 onL5 with multilevel degenerative disc disease of the visualized low er lumbar spine. 4. Postsurgical changes from hysterectomy with bilateral salpingo-oophorectomy. [facility], , 11/26/2024 8:44 PM
== END | disposition home or self-care (01) ==
LOC: RADMRIMAIN 18:39
PROVIDERS: ATTEND Family Medicine
DX: M85.30 Osteitis condensans, unspecified site (principal); R93.49 Abnormal radiologic findings on diagnostic imaging of other urinary organs; M70.61 Trochanteric bursitis, right hip; M51.369 Other intervertebral disc degeneration, lumbar region without mention of lumbar back pain or lower extremity pain; M43.16 Spondylolisthesis, lumbar region; Z90.710 Acquired absence of both cervix and uterus; Z90.722 Acquired absence of ovaries, bilateral
CPT/HCPCS: 72197; A9585

== ENCOUNTER → 2025-01-27 | Outpatient (CLI) | payer MEDICARE ==
--- NOTE | 2025-01-27 14:33 | CT ---
EXAMINATION TYPE: CT shoulder LT wo con CT DLP: 384.4 mGycm, Automated exposure control for dose reduction was used. DATE OF EXAM: 01/27/2025 2:21 PM COMPARISON: None CLINICAL INDICATION:Female, 74 years old with history of M75.102 UNSP ROTATR-CUFF TEAR/RUPT M75.102 M 25.512; [facility], LEFT SHOULDER PAIN TECHNIQUE: Axial images were obtained of the left shoulder without the use of IV contrast. Additiona l coronal and sagittal reformatted images and soft tissue and bone window were obtained for review. 3 -D reconstruction was created on a separate workstation. FINDINGS: There is no evidence of fracture, subluxation, or dislocation. Mild AC joint arthropathy wi th capsular hypertrophy and undersurface spurring. High riding humeral head with subchondral cystic c hanges in spurring along its medial aspect. Subacromial bursal distention. No significant soft tissue swelling or joint effusion is identified. No focal muscular atrophy or edema is identified. No radio paque foreign body identified. Left lower lobe peripheral 4.6 mm nodular opacity (series 3, image 67). IMPRESSION: 1. No acute fracture or dislocation. 2. High riding humeral head suggesting chronic rotator cuff tear. 3. Mild AC joint arthropathy. 4. Mild osteoarthritic changes of the left shoulder. 5. Subacromial bursitis. 6. Left lower lobe 4.6 mm nodular opacity. In a low risk patient, no follow-up is recommended. In a h igh-risk patient consider optional CT chest in 12 months. [facility], , 01/27/2025 2:31 PM
== END | disposition home or self-care (01) ==
LOC: RADCTMAIN 14:00
PROVIDERS: ATTEND Orthopaedic Surgery Sports Medicine
DX: M75.102 Unspecified rotator cuff tear or rupture of left shoulder, not specified as traumatic (principal); M19.012 Primary osteoarthritis, left shoulder; M75.52 Bursitis of left shoulder; R91.8 Other nonspecific abnormal finding of lung field